=== PATIENT | female | born 1935 | race Two or more races ===

== ENCOUNTER 2016-07-13 12:13 | Emergency (ER) | payer MEDICARE ==
[~2016-07-13] VITALS: Ht 167.6 cm; Wt 79.4 kg
[~2016-07-13 12:13] MED LIST: BLOO-140 IN; FAMO20TA8 PO; HYDR25TA4 PO; INSU100V7 SQ; LACT10SO7 PO; LORA10TA47 PO; LOSA50TA21 PO; METH5TAB6 PO; METO50TA3 PO; MONT10TA22 PO; POLY17PO4 PO; PREG75CA PO
--- NOTE | 2016-07-13 12:30 | NUR ---
PT IS IN ROOM #1B. DR ALFORD EVALUATED THE PT.
[2016-07-13] MEDS ORDERED: CLONIDINE HCL 0.1 MG TABLET PO ONE (12:45)
[2016-07-13] MEDS ORDERED: CLONIDINE HCL 0.1 MG TABLET ONE (12:51)
[2016-07-13 13:10] LABS: BASOPHILS # (AUTO) 0.1 K/uL (0.0-0.2); BASOPHILS % (AUTO) 0.6 % (0.0-2.0); EOSINOPHILS # (AUTO) 0.1 K/uL (0.0-0.7); EOSINOPHILS % (AUTO) 1.4 % (0.0-7.0); LYMPHOCYTES # (AUTO) 2.1 K/uL (0.8-4.8); LYMPHOCYTES % (AUTO) 22.7 % (20.5-51.5); MONOCYTES # (AUTO) 0.4 K/uL (0.1-1.30); MONOCYTES % (AUTO) 4.1 % (0.0-11.0); NEUTROPHILS # (AUTO) 6.5 K/uL (1.8-8.9); NEUTROPHILS % (AUTO) 71.2 % (38.5-71.5)
[2016-07-13 13:13] LABS: CALCIUM 9.2 mg/dL (8.5-10.1); CREATININE 0.9 mg/dL (0.6-1.3); POTASSIUM 4.1 mmol/L (3.5-5.1)
[2016-07-13 13:19] LABS: HEMATOCRIT 35.8 % (37.0-47.0); HEMOGLOBIN 11.8 g/dL (12.0-16.0); MEAN CORPUSCULAR HEMOGLOBIN 30.9 uug (27.0-31.0); MEAN CORPUSCULAR HGB CONC 33 g/dL (32.0-37.0); MEAN CORPUSCULAR VOLUME 93.6 fL (81.0-99.0); PLATELET COUNT (AUTO) 296 K/uL (150-450); RED BLOOD CELL COUNT(AUTO) 3.82 MIL/uL (4.20-5.40); RED CELL DISTRIBUTION WIDTH 12.7 % (11.5-14.5); WHITE BLOOD COUNT (AUTO) 12.6 K/uL (4.0-11.2)
--- NOTE | 2016-07-13 14:33 | NUR ---
PT WAS D/C TO HOME. D/C INSTRUCTIONS GIVEN TO THE PT AND TO HER ALEISHAER.
[2016-07-13 14:34] VITALS: BP 144/76
== END 2016-07-13 14:35 | disposition home or self-care (01) ==
LOC: ER 12:23
DX: I10 Essential (primary) hypertension (principal); E11.9 Type 2 diabetes mellitus without complications; E78.5 Hyperlipidemia, unspecified; J44.9 Chronic obstructive pulmonary disease, unspecified; J45.909 Unspecified asthma, uncomplicated; K21.9 Gastro-esophageal reflux disease without esophagitis; E03.9 Hypothyroidism, unspecified; Z79.4 Long term (current) use of insulin
CPT/HCPCS: 36415; 80048; 84484; 85025; 93005; 99285; A4663; 70030-TC